=== PATIENT | male | born 2000 | race Caucasian/White ===

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

== ENCOUNTER 2023-06-10 14:36 | Emergency (ER) | payer SELFPAY ==
[2023-06-10 14:38] VITALS: BP 145/89; PULSE 66; RESP 18; TEMP 36.7; O2SAT 100
--- NOTE | 2023-06-10 14:43 | ECG_ITS ---
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 Measurements Intervals [place] Rate: 64 P: 73 TN: 139 QRS: 93 QRSD: 109 T: 64 QT: 387 QTc: 401 Interpretive Statements SINUS RHYTHM WITH SINUS ARRHYTHMIA BORDERLINE RIGHT AXIS DEVIATION [QRS AXIS > 90] INCOMPLETE RIGHT BUNDLE BRANCH BLOCK [90+ ms QRS DURATION, TERMINAL R IN V1/V2, 40+ ms S IN I/aVL/V4/V5/V6] MODERATE ST DEPRESSION [0.05+ mV ST DEPRESSION] No previous ECG available for comparison Electronically Signed On 06-10-2023 16:50:15 POWERHOUSE ELECTRICIAN APPRENTICE by Carlos Cardona M.D. [id number]
--- NOTE | 2023-06-10 14:48 | XRR_ITS ---
PROCEDURE INFORMATION: Exam: XR Chest Exam date and time: 06/10/2023 3:39 PM Age: 22 years old Clinical indication: Pain; Angina pectoris; Additional info: Chest pain TECHNIQUE: Imaging protocol: Radiologic exam of the chest. Views: 1 view. COMPARISON: CT cervical spin wo con* [id number] 06/23/2019 5:50 PM FINDINGS: Lungs: Unremarkable. No consolidation. Pleural spaces: Unremarkable. No pleural effusion. No pneumothorax. Heart/Mediastinum: Unremarkable. No cardiomegaly. Bones/joints: Unremarkable. XR/XR chest 1V portable [id number] IMPRESSION: No acute findings.
== END 2023-06-10 15:43 | disposition left against medical advice (07) ==
PROVIDERS: Emergency Provider Family Medicine
DX: Z53.21 Procedure and treatment not carried out due to patient leaving prior to being seen by health care provider (principal)
CPT/HCPCS: 71045; 93005

== ENCOUNTER 2025-03-04 09:36 | Outpatient (RCR) | payer OTHER, SELFPAY | END 2025-03-05 23:59 | disposition home or self-care (01) | LOC: SPT 09:36 | PROVIDERS: Visit Provider Urology | DX: Z98.890 Other specified postprocedural states (principal) | CPT/HCPCS: 97110; 97161 ==

== ENCOUNTER 2025-03-06 05:00 | Outpatient (RCR) | payer OTHER, SELFPAY | END 2025-04-05 23:59 | disposition home or self-care (01) | LOC: SPT 05:00 | PROVIDERS: PCP Electrodiagnostic Medicine; Visit Provider Urology | DX: Z98.890 Other specified postprocedural states (principal) | CPT/HCPCS: 97110; 97140; 97530 ==

== ENCOUNTER 2025-03-18 12:39 | Emergency (ER) | payer OTHER, SELFPAY ==
--- OUTSIDE RECORDS SUMMARY | 2025-03-18 12:47 | XMS_ITS | Clinical Summary ---
Author Organization [facility] Address [address] [place] [address] Care Team Providers Care Salvage Winder And Inspector Name Role Phone Unavailable Primary Care Provider Unavailabl e Allergies No known active allergies Medications ibuprofen (MOTRIN) 600 mg tablet ibuprofen 600 mg oral tablet Start Date: 05/20/20 Status: Ordered 0 Active ondansetron (ZOFRAN ODT) 4 mg Tablet, Rapid DissolveIndicati ons:Abdominal pain, unspecified abdominal location Take 1 Tablet (4 mg) by mouth every 8 hours as needed for Nausea/Emesis. Dissolve tablet on top of tongue, then swallow with saliva. 30 Tablet 2 Active Active Problems No known active problems Social History Tobacco Use Types Packs/Day Years Used Date Smoking Tobacco: Never Smokeless Tobacco: Never Tobacco Cessation:Counseling Given: No Sex and Gender Information Value Date Recorded Sex Assigned at Not on file Legal Sex Male 5:26 PM CDT Gender Identity Not on file Sexual Orientation Not on file Last Filed Vital Signs Vital Sign Reading Time Taken Comments Blood Pressure 130/88 05/24/2022 8:48 AM DINKEY ENGINE MECHANIC Pulse 115 05/24/2022 8:48 AM DINKEY ENGINE MECHANIC Temperature 36.9 C (98.5 F) 05/24/2022 8:48 AM DINKEY ENGINE MECHANIC Respiratory Rate 18 05/24/2022 8:48 AM DINKEY ENGINE MECHANIC Oxygen Saturation 96% 05/24/2022 8:48 AM DINKEY ENGINE MECHANIC Inhaled Oxygen Concentration - - Weight 72.1 kg (159 lb) 05/24/2022 8:48 AM DINKEY ENGINE MECHANIC Height 175.3 cm (5' 9 ) 05/24/2022 8:48 AM DINKEY ENGINE MECHANIC Body Mass Index 23.48 05/24/2022 8:48 AM DINKEY ENGINE MECHANIC Plan of Treatment Health Maintenance Due Date Last Done Comments HPV VACCINES (1 - Male 3-dose series) 2016 HEPATITIS B VACCINES (2 of 3 - Hep B Twinrix 3-dose series) 06/16/2020 05/19/2020 INFLUENZA VACCINE (#1) 2025 04/09/2020 DTAP/TDAP/TD VACCINES (2 - Td or Tdap) 04/09/2030 Insurance
[2025-03-18 12:50] VITALS: BP 136/85; PULSE 92; RESP 17; TEMP 36.6; O2SAT 100; BMI 20.7
--- NOTE | 2025-03-18 13:09 | ED_ITS ---
HPI - Extremity Problem General: Chief complaint: Extremity Problem,Nontraumatic Stated complaint: possible clot in R leg, redness Time Seen by Provider: 03/18/25 13:09 Source: patient Mode of arrival: ambulatory Limitations: no limitations History of Present Illness: Patient is a nice 24-year-old male who presents to ED today at the request of his physical therapist due to some complaints of right calf pain following a surgery 2 weeks ago. He had surgery to the right hip to repair a torn labrum. He states he was doing physical therapy today when he mentioned to his therapist that he had been having a burning and lightening sensation to the calf. They reportedly aborted therapy and recommended he come to the emergency department to rule out a DVT. He does have follow-up with his surgery team this week. He has not noticed any significant calf swelling. He states yesterday he did notice that his legs turned red and purple for a few minutes after standing up quickly from lying down. He states this has since subsided and he has not had any further episodes. He currently reports no changes to color/temperature of his lower extremities. MD Complaint: extremity pain (R calf pain) Onset (ago): day(s) Pain Consistency: intermittent Location: right and lower extremity Quality: burning Radiation: none Relieving factors: nothing Exacerbating factors: nothing Associated symptoms: Reports no associated symptoms; Deny chest pain or fever(s) Context: recent surgery/procedure Related Data Home Medications ?Medication ?Instructions ?Recorded ?Confirmed Tylenol 1 - 2 tab PO PRN 01/02/20 Allergies Allergy/AdvReac Type Severity Reaction Status Date / Time No Known Allergies Allergy Verified 08/07/24 07:24 Review of Systems Const: Denies: fever(s) Card: Denies: chest pain Resp: Denies: dyspnea Musc: Reports: extremity pain; Denies: neck pain, back pain, extremity swelling, joint pain, joint swelling, joint redness, joint warmth, joint stiffness, limited range of motion, muscle cramps or muscle weakness Skin/Breast: Denies: erythema Neuro: Denies: numbness in extremities, weakness in extremities, sensory changes or difficulty walking PFS ED PFSH: Medical History Bilateral hip pain Social History (Reviewed 03/18/25 @ 13:29 by DALE Khan Smoking and tobacco/nicotine status: current some day tobacco/nicotine user Alcohol intake: never Substance/Drug Use: never Physical Exam Const: COMMON NORMALS: no acute distress, average body habitus, patient oriented x3, no limitations, healthy appearing, alert and well nourished GENERAL APPEARANCE: cooperative Resp: COMMON NORMALS: normal respiratory effort Extremity: COMMON NORMALS: capillary refill normal, no joint enlargement, no clubbing, cyanosis or edema and no pedal edema GENERAL: Yes normal exam except as noted RIGHT LOWER EXTREMITY: Yes lower leg (mild R calf pain; no edema or erythema or warmth present) Right lower leg: Yes inspection (normal gross inspection) and Yes neurovascular exam (normal) OTHER: bilateral LEs with intact sensation and pulses with normal cap refills Neuro: COMMON NORMALS: patient oriented x3, moves all extremities, no focal motor deficits, no sensory deficits noted and gait normal SENSORIUM/ORIENTATION: Yes alert Skin: COMMON NORMALS: no rashes or lesions noted GENERAL SKIN EXAM: no rashes or lesions noted Course Vital Signs: Vital signs: Vital Signs Temperature 97.9 F 03/18/25 12:50 Pulse Rate 92 03/18/25 12:50 Respiratory Rate 17 03/18/25 12:50 Blood Pressure 127/95 03/18/25 13:26 Pulse Oximetry 98 03/18/25 13:26 Oxygen Delivery Me thod Room Air 03/18/25 13:26 MDM - Extremity (Nontraumatic) Medical Decision Making Patient is a 24-year-old male here for some right sided calf pain. He did undergo surgery to the right hip/labrum approximately 2 weeks ago. He was reportedly at physical therapy when they wanted him to come to the emergency department for rule out DVT. [employer] steve, completed his venous scan and had reported no DVT. He did also evaluate for arterial flow and this was normal. At this time patient is cleared for discharge from the emergency dep artment. He can continue to follow-up with his physical therapy and surgery team as scheduled. Differential Diagnosis Likely superficial thrombophlebitis, lower extremity edema and deep vein thrombosis of lower extremity Medical Records I reviewed the patient's medical records. XR interpretation done by ED provider, pending radiology final review (per US steve Coffey-no DVT, visualized good arterial flow as well) Discharge Plan Discharge Patient Disposition: Home Clinical Impression: Right calf pain Condition: Stable Prescriptions: No Action Tylenol 1 - 2 tab PO PRN Discharge Orders: Discharge ED (Routine); Ordered 03/18/25 Ordered By: Teena Galan Referrals: Rupesh Green DO [Primary Care Provider, Family Practice] Patient Instructions: Patient Portal & Am[facility] Instructions Activity Restrictions/Additional Instructions: As we discussed, ultrasound did not visualize any DVT (blood clot). You may continue physical therapy as directed. You may follow-up with your surgical team as scheduled. Print Language: Colombian Coding Level of Care Code ED Photolithographic Stripper for Sari Gaona
--- NOTE | 2025-03-18 13:15 | USCV_ITS ---
Juan Luis Miner Age: 24 Gender: M : 2000 Exam Date: 03/18/2025 13:24 Ordering Phys: Teena Galan Technologist: LIZ [place] [facility] [place]: Calf Pain. HISTORY: Calf Pain PROCEDURES: Venous duplex imaging was performed in bilateral lower extremities. The following venous structures were evaluated: common femoral vein, profunda vein, proximal portion of the greater saphenous vein, superficial femoral vein, and the popliteal vein. In addition, the posterior tibial and peroneal trunk were evaluated. Serial compression, augmentation maneuvers, and spectral Doppler flow evaluation were performed. FINDINGS: Normal 2-D Doppler and augmentation and compressibility throughout the lower extremity venous structures. Additional imaging through the proximal calf veins also reveals no thrombus. Limited evaluation of the greater saphenous vein is patent with no thrombus. CONCLUSIONS No DVT right lower extremity. Dr. Yadi Lisa DO (Electronically Signed) Final Date: 18 March 2025 14:24 S
[2025-03-18 13:26] VITALS: BP 127/95; O2SAT 98
[2025-03-18 13:45] VITALS: BP 140/95; PULSE 80; O2SAT 95
== END 2025-03-18 13:48 | disposition home or self-care (01) ==
PROVIDERS: Emergency Provider Physician Assistant; PCP Electrodiagnostic Medicine
DX: M79.661 Pain in right lower leg (principal)
CPT/HCPCS: 93971; 99284

== ENCOUNTER 2025-04-06 05:00 | Outpatient (RCR) | payer OTHER, SELFPAY | END 2025-05-05 23:59 | disposition home or self-care (01) | LOC: SPT 05:00 | PROVIDERS: Visit Provider Orthopaedic Surgery Sports Medicine | DX: Z98.890 Other specified postprocedural states (principal) | CPT/HCPCS: 97110 ==

== ENCOUNTER 2025-05-06 05:00 | Outpatient (RCR) | payer OTHER, SELFPAY | END 2025-06-05 23:59 | disposition home or self-care (01) | LOC: SPT 05:00 | PROVIDERS: Visit Provider Orthopaedic Surgery Sports Medicine | DX: Z98.890 Other specified postprocedural states (principal); M25.552 Pain in left hip | CPT/HCPCS: 97110; 97140 ==

== ENCOUNTER 2025-05-06 05:00 | Outpatient (RCR) | payer OTHER, SELFPAY | END 2025-05-22 10:12 | disposition home or self-care (01) | LOC: SPT 05:00 | PROVIDERS: Visit Provider Orthopaedic Surgery Sports Medicine | DX: Z98.890 Other specified postprocedural states (principal) | CPT/HCPCS: 97110 ==

== ENCOUNTER 2025-05-26 13:05 | Emergency (ER) | payer OTHER, SELFPAY ==
--- OUTSIDE RECORDS SUMMARY | 2014-05-28 03:41 | XMS_ITS | Continuity of Care Document ---
Author Organization [facility] Address [address] [place] [address] [place] [address] Phone Care Team Providers Care Welder Manufacture Name Role Phone Edgar Hawk MD Unavailable Unavailable Procedures Procedure Date OFFICE/OUTPATIENT VISIT, EST Pelvis X-Ray 3 Views (AP, Inlet/Outlet) OFFICE/OUTPATIENT VISIT, [facility] Ankle X-Ray 3 Views (AP, LAT, OBL) Foot X-Ray 3 Views (AP, LAT, OBL) Advance Directives Directive Yes / No Effective Date File Name No Information Encounters Encounter Description Practice Location Reason(s) For Visit Diagnoses Date Provider Providers Copied on Encounter -[facility], [address] [place] [address], [id number], tel:[phone] [phone] [facility] No Information 4 Kenn Hernández. [address] [place] [address], [id number], [place]. tel:[phone] OFFICE/OUTPAT IENT VISIT, EST [facility], [address] [place] [address], [id number], tel:[phone] [facility] No Information 4 Moorthy Jean. [address] [place] [address], [id number], [place]. tel:[phone] Referring Provider: Suzanne Atkinson MD, [address], [place], [address]. tel:[phone] OFFICE/OUTPAT IENT VISIT, [facility], [address] [place] [address], [id number], tel:[phone] [facility] No Information Feb-2 2 Moorthy Jean. [address] [place] [address], [id number], [place]. tel:[phone] Referring Provider: Self Referred, [address] [address], [place], [address] . tel:[phone] Family History Family Member Type Diagnosis Age At Onset Problem (finding) Family history of Cance r of Breast Payers Payer name Insurance type Covered green party ID Authorkalia barroso(s) [facility] [id number] Social History Type Description Quantity Date Captured Comments Sex Male Smoking Status No Information Chief Complaint And Reason For Visit No Information Reason For Referral Reason For Referral No Information History Of Present Illness Encounter Date Complaint History Of Prese nt Illness No Information Functional Status Date Functional Assessmen t No Information Instructions Date Instruction Additional Infor mation No Information Assessments Type Assessment Date No Information Patient Care Teams Name Effective Dates (start - stop) Status Members No Information
--- OUTSIDE RECORDS SUMMARY | 2025-05-26 13:11 | XMS_ITS | Clinical Summary ---
Author Organization [facility] Address [address] [place] [address] Care Team Providers Care Licensed Mortgage Loan Officer Name Role Phone Unavailable Primary Care Provider [...] Comments Blood Pressure 130/88 05/24/2022 8:48 AM FAST FOOD SHIFT LEAD Pulse 115 05/24/2022 8:48 AM FAST FOOD SHIFT LEAD Temperature 36.9 C (98.5 F) 05/24/2022 8:48 AM FAST FOOD SHIFT LEAD Respiratory Rate 18 05/24/2022 8:48 AM FAST FOOD SHIFT LEAD Oxygen Saturation 96% 05/24/2022 8:48 AM FAST FOOD SHIFT LEAD Inhaled Oxygen Concentration - - Weight 72.1 kg (159 lb) 05/24/2022 8:48 AM FAST FOOD SHIFT LEAD Height 175.3 cm (5' 9 ) 05/24/2022 8:48 AM FAST FOOD SHIFT LEAD Body Mass Index 23.48 05/24/2022 8:48 AM FAST FOOD SHIFT LEAD Plan of Treatment Health Maintenance Due Date Last Done Comments HPV VACCINES (1 - Male 3-dose series) 2016 HEPATITIS B VACCINES (2 of 3 - Hep B Twinrix 3-dose series) 06/16/2020 05/19/2020 INFLUENZA VACCINE (#1) 2025 04/09/2020 DTAP/TDAP/TD VACCINES (2 - Td or Tdap) 04/09/2030 Insurance
--- OUTSIDE RECORDS SUMMARY | 2025-05-26 13:11 | XMS_ITS | Data Portability ---
Author Organization [facility] Tevin Velasquez [facility], Viraj, [facility] Address [address] [facility] [address] [place] [address] Assessment Encounter Date Assessment Date Assessment LastModified by Organization Details LastModified Time 11/28/2024 11/28/2024 Document scribed by Elijah Sosa Product Management Manager. I was present during interview and exam. I have reviewed and agree with above documentation. Dr. Rupesh Green. I Left a message at [facility] to discuss case and imaging with them. [email or web address] Not available 12/03/2024 07:53:20 01/31/2025 01/31/2025 Document scribed by Brionna Hernandez. I was present during interview and exam. I have reviewed and agree with above documentation. Dr. Rupesh Green. Counseled imaging of L ankle, L knee, R hand, and lower back today, RTC for f/u to discuss results. I do not see anything in history or exam today that would justify disability especially related etiology. But we will f/u on xrays and have him continue with eval with specialists. continue with prn nsaids, tylenol. ambulation/exe rcise as tolerated [email or web address] Not available 02/06/2025 12:37:38 02/06/2025 02/06/2025 Document scribed by Brionna Hernandez Scribe. I was present during interview and exam. I have reviewed and agree with above documentation. Dr. Rupesh Green. Reviewed and discussed recent XR's, negative other than mild scoliosis. Explained nothing on this imaging or on exam suggests anything for disability. continue f/u with hip specialist in [place]. [email or web address] Not available 02/12/2025 02:11:38 Plan of Treatment Reminders Order Date Submit Date Provider Last Modified By Organization Details Last Modified Time Details Appointments None recorded. Lab None recorded. Referral None recorded. Procedures None recorded. Surgeries None recorded. Imaging XR, lumbosacral spine, 2 or 3 view [address] [place] [address] ([facility]), [address] [place], [address], 5 12:02:22 XR, knee, 3 view [address] [place] [address] ([facility]), [address] [place] [address], [phone], 5 12:02:22 XR, ankle, 3 or more view [address] [place] [address] ([facility]), [address] [place] [address], [phone], 5 12:02:22 XR, hand, 3 or more view [address] [place] [address] ([facility]), [address] [place], [address], 5 12:02:22 XR, cervical spine, 2 or 3 view [address] [place] [address], [address] [place] [address], [id number], 5 12:15:52 XR, hip + pelvis, bilateral, 3 or 4 view [address] [place] [address]), [address] [place], [address], 5 12:15:52 Medication Orders None recorded. Patient TargetsNo targets recorded. Patient InstructionsNo instructions recorded. Reason for Referral None Reported. Results Created Date Observation Date Name Description Value Unit Range Abnormal Flag Note LastModifiedBy Organization Detail LastModifiedTime 12/01/1911/28/2024 XR, hip + pelvi s, bilat eral, 3 or 4 view No observ ation record ed. [address] [place], [address], 12/04/2024 17:48:07 12/01/19 25 11/28/2024 XR, cervi eufemia spine , 2 or 3 view No observ ation record ed. [address] [place], [address], 12/04/2024 17:48:08 02/01/20 XR, ankle , 3 or more view No observ ation record ed. [facility] ([facility]) [address] [place], [address], 01/31/2025 09:38:28 02/02/20 25 01/31/2025 XR, lumbo sacra l spine , 2 or 3 view No observ ation record ed. [facility] [address] [place], [address], 02/06/2025 12:39:11 02/02/20 25 01/31/2025 XR, knee, 3 view No observ ation record ed. [facility] [address] [place], [address], 02/06/2025 12:38:49 02/02/20 25 01/31/2025 XR, ankle No observ ation record ed. [address] [place], [address], 02/11/2025 11:32:08 02/02/20 25 01/31/2025 XR, hand, 3 or more view No observ ation record ed. [facility] [address] [place], [address], 02/06/2025 12:38:27 Result Notes None recorded. Problems Name Problem SNOMED Code Status Onset Date Resolution Date Notes Provider Name and Address Organization Details Recorded Time Migraine 12284896 Active Skye coffman [facility] 5 08:21:36 Gastric ulcer 802182378 [facility] 08:56:35 Neck pain 51137474 [facility] 08:56:37 Pain of hip region 98865961 Active Elijah coffman [facility], [facility] 5 08:56:38 Problem Notes None recorded. Medical Equipment None Reported. Allergies No known drug allergies Medications Not known to be on any medication Vitals Date Recorded Body weight Body mass index (BMI) Body height Oxygen saturation Heart rate Respiratory rate Systolic And Diastolic Provider Name and Address Organization Details Last Updated DateTime 5 91932.5 5 g 20.5 kg/m2 175.26 cm 99 % 70 /min 18 /min 120/88 mm[Hg] Skye Lee [facility] 5 08:28:07 Date Recorded Body height Body mass index (BMI) Body weight Oxygen saturation Heart rate Respiratory rate Systolic And Diastolic Provider Name and Address Organization Details Last Updated DateTime 5 175.26 cm 20.7 kg/m2 92963.3 3 g 99 % 95 /min 18 /min 130/80 mm[Hg] Skye Lee [facility] 5 09:09:26 Date Recorded Body height Body mass index (BMI) Body weight Oxygen saturation Heart rate Respiratory rate Systolic And Diastolic Provider Name and Address Organization Details Last Updated DateTime 175.26 cm 20.6 kg/m2 56551.7 4 g 99 % 103 /min 18 /min 110/66 mm[Hg] [facility] 12:29:35 Social History None recorded. Functional Status None recorded. Mental Status None recorded. Family History Relationship Description Onset Age of this Age Resolved Age Notes LastModified by Organization Details LastModified Time Mother Essential hypertension [email or web address] Not available 08:24:42 Father Essential hypertension [email or web address] Not available 08:24:42 Medical History No medical history recorded. Immunizations Vaccine Type Date Status Note Provider Nam e and Address Organization Details Recorded Time Hep B, adolescent or pediatric 2 completed Not Available [facility] 02/06/2025 12:18:45 Hep B, adolescent or pediatric 2 completed Not Available [facility] 02/06/2025 12:18:45 DTaP 2 completed Not Available [facility] 02/06/2025 12:18:45 Hib (HbOC) 2 completed Not Available [facility] 02/06/2025 12:18:45 IPV 2 completed Not Available [facility] 02/06/2025 12:18:45 Hep B, adolescent or pediatric 3 completed Not Available [facility] 02/06/2025 12:18:45 Hib (PRP-T) 3 completed Not Available [facility] 02/06/2025 12:18:45 IPV 3 completed Not Available [facility] 02/06/2025 12:18:45 pneumococcal conjugate PCV 7 3 completed Not Available [facility] 02/06/2025 12:18:45 DTaP 3 completed Not Available [facility] 02/06/2025 12:18:45 DTaP 3 completed Not Available [facility] 02/06/2025 12:18:45 Hib (PRP-T) 3 completed Not Available [facility] 02/06/2025 12:18:45 IPV 3 completed Not Available [facility] 02/06/2025 12:18:45 MMR 3 completed Not Available [facility] 02/06/2025 12:18:45 pneumococcal conjugate PCV 7 3 completed Not Available [facility] 02/06/2025 12:18:45 Hib (PRP-T) 4 completed Not Available [facility] 02/06/2025 12:18:45 DTaP 4 completed Not Available [facility] 02/06/2025 12:18:45 varicella 4 completed Not Available [facility] 02/06/2025 12:18:45 MMR 6 completed Not Available [facility] 02/06/2025 12:18:45 IPV 6 completed Not Available [facility] 02/06/2025 12:18:45 DTaP 6 completed Not Available [facility] 02/06/2025 12:18:45 varicella 7 completed Not Available [facility] 02/06/2025 12:18:45 Tdap 4 completed Not Available [facility] 02/06/2025 12:18:45 meningococcal MCV4P 5 completed Not Available [facility] 02/06/2025 12:18:45 HPV9 5 completed Not Available [facility] 02/06/2025 12:18:45 COVID-19, mRNA, LNP-S, PF, 30 mcg/0.3 mL dose 1 completed Not Available [facility] 02/06/2025 12:18:45 Past Encounters Encounter ID Performer Location Encounter Start Date Encounter Closed Date Diagnosis/Indication Diagnosis SNOMED-CT Code Diagnosis ICD10 Code Diagnosis IMO Codes Diagnosis Note [id number] Rupesh Green DO [facility] ([facility]) [address] [place] [phone] 11/28/2024 08:06:39 2024 12:15:52 Pain of hip region 81153578 M25.551 M25.552 G89.29 [id number] 11/28/24: XR hip/pelvis b/l today, pt to sign for records from [facility], consider MRI. take tylenol prn. ambulate as tolerated. Gastric ulcer 176254796 K25.9 [id number] H/o., stable. no recent symptoms. will try to avoid nsaids. Neck pain 49856231 M54.2 47599 11/28/24: XR C spine today. counseled on home exercises. recommend massage. [id number] Rupesh Green DO [facility] ([facility]) [address] [place] [phone] 01/31/2025 09:00:56 02/04/2025 12:02:22 Chronic ankle pain 1701150820 9109 M25.572 G89.29 51588835 Pain of le ft knee joint 4524797807 12458 M25.562 521220 Pain of right hand 88129 33869 23970 M79.641 142104 Chronic low back pain 27 2124279 M54.50 G89.29 36576886 Anxiety 56495734 F41.9 78049 Advised pt see behavioral health regarding his anxiety. Migraine 27518314 G43.90 9 [id number] Advised pt continue f/u with Headache Specialist in [place]. 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 [id number] Rupesh Green DO [facility] ([facility]) [address] [place] [id number] 02/06/2025 12:18:27 02/12/2025 11:14:16 Pain of hip region 52063219 M25.551 M25.552 G89.29 [id number] 02/06/25: Reviewed and discussed recent XR's, negative.: XR hip/pelvis b/l today, pt to sign for records from [facility], consider MRI. take tylenol prn. ambulate as tolerated. Health Concerns Section Related Observation LastModified by Organization Detai ls LastModified Time None Recorded Concern Status LastModified by Organization Details LastModified Time None Recorded Advance Directives Directive None Recorded Payers Insurance Date Sequence Insurance Name Policy Number Policy Jarquin Covered Member ID Jarquin Member ID Guarantor Name 02/12/2025 1 [place] [id number] 1 Juan Luis Miner [id number] Juan Luis Miner Notes Date Note Type Note Provider Name and Address Organization Details Recorded Time 11/28/2024 text/html Annual WellnessReported by PatientSocial/Behavior al HistoryFor fracture risk, patient reportshistory of fracturesbut reportsno recent explained fracture,no sudden unexplained fractures, andno previous musculoskeletal injuries. For diet and nutrition, patient reportshealthy diet. For physical activity, patient reportsrecent increase in physical activityandgood physical condition. For additional lifestyle factors, patient reportsno tobacco useandno alcohol intake.Mental Status:For depression risk, patient reportsnever feels sad, empty, or tearful,no loss of interest in activities,no significant changes in weight,no sleep disturbances or insomnia,no agitation,no loss of energy,no feelings of worthlessness or guilt,no thoughts of suicide,no history of depression, andno history of mood disorders.Functional AbilityFor hearing, patient reportsno loss of hearing(tinnitus). For vision, patient reportsno vision problems.ROS as noted in the HPI Pt presents to establish care. He reports he is trying to update MRI of his hips so he can have surgery.H/o being in [employer], a lot of walking and tracking uneven land, no specific prior injury, no issues prior to serving other than right hip twisting out of socket one time during sports in high school. He participated in track, football, and wrestling in high school.He had MRI Hip Arthrogram in 2021 at [facility] in [place]. He saw Orthopedics in [place] ( last seen in 2022), dx with bilateral Pubic symphysis diastasis, abductor tendon partial tear strain. No prior hip XR or CT. He tried 4-5 months of PT ( finished winter 2021), pain worsened. He was put on crutches, taken out of school for one month to rest, without improvement.He was recommended steroid injections or surgery. Pt is ok with surgery if it improves the chronic pain. His Orthopedic doctor has recently sent a referral to Dr. Johns in [facility], hasn't seen yet, wants imaging prior to going there. He reports he walks a lot for work, at the local [employer], [employer]. He reports pain increased when he is working, finds he has difficulty walking d/t the pain, especially this week. Taking Tylenol PRN, unable to take Ibuprofen d/t h/o gastric ulcer. No Fhx Arthritis.Fhx: HTN, both parents. Shx: right hand FB removed effecting tendons. Also c/o neck pain for 3-4 months, has been seeing Rich Singletary, Chiropractor for adjustment. Yesterday he experienced tingling in the left face for 3-4 hours, this concerning to him. Rupesh Green, DO [address] [place], [address], [facility], [facility]aj 12/03/2024 07:54:23 01/31/2025 text/html ROS as noted in the HPI Pt presents for recheck 2 months hip pain. He has been seen in [place], imaging performed, referred to [facility], who he saw 3 days ago, was told he has hip impingement . Planned to return in 8 days for MRI, CT, followed by surgery. They will plan to do one hip, be in a brace and crutches for 6-8 weeks, then surgery on the other hip, approx 1 year recovery. He continues with back and hip pain, 5/10 today, worse with movement. He reports I knocked my hip out of place when in high school . He is wanting to discuss the pain and limited ROM of left ankle, left knee, right hand, back, and hips He is needing dx with any health conditions to present to [place] for disability. He is working in advance on being out of work for one year, has short and skilled nursing disability coverage through his employer, however it is only 60% of his income. He had several injuries while in the [email or web address], resulting in chronic pain. H/o right hand surgery, removal of FB, after wood went into his hand, involving tendons and ligaments . No PT was done. 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 He broke his left ankle twice while hiking. He rolled it, hit the dirt, followed by pain that continued through his hike. 2 days later he had imaging done, was told he had two fractures, ligament injury. He reports they told him they couldn't do surgery, he would have to deal with it. He was put in a brace for 1-2 months. He has chronic pain of this ankle all the time, worse with ambulation. He injured his left knee prepping for a hike, it was my IT band rubbing against my knee .He did do PT on the knee, without improvement.He has chronic left knee pain with intermittent flares, worse with working and walking long distances, hiking. Also with chronic lower back pain, worse with movement, bending. Pt is not exercising d/t hip pain. He was doing some PT in [place] for months, however it was making his pain worse. He also c/o migraines, reports he has seen Headache specialist in [place], kept a headache diary. Also c/o anxiety, this started after serving in the [employer]. Rupesh Green DO [address] [place] [address], [phone], [facility] 02/06/2025 12:37:42 02/06/2025 text/html ROS as noted in the HPI Pt presents for recheck 1 week He is wanting to discuss the results of his xraysHe rates his pain at 6/10 today We did multiple XR's 01/31/25 including right hand, left knee, left ankle, LS spine, all negative other than some mild levoscoliosis of the lumbar spine. Rupesh Green DO [address] [place] [address], [phone], [facility] Viraj Bird 02/12/2025 02:11:40
[2025-05-26 13:13] VITALS: BP 139/98; PULSE 75; RESP 16; TEMP 36.7; O2SAT 95; BMI 20.7
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
--- NOTE | 2025-05-26 13:37 | W.ED.WOUNDLC ---
HPI - Wound/Laceration General: Chief Complaint: Wound/Laceration Stated Complaint: left hip yellow drainage with fever Time Seen by Provider: 05/26/25 13:20 History of Present Illness: Patient is a 24-year-old gentleman that had second surgery of his left hip, anterior approach, labrum repair, femoral head shaving at orthopedics in [place], [place] Dr. loew, returns to the ED due to fever chills, drainage from his anterior laceration site. Context: Patient does not know if he had an injury or it was congenital, however he had issues with his hip, and went under repair of the above surgery on 05/22. He is nonweightbearing. Over the last 24 hours, he noted drainage to both his anterior surgery sites, however the medial 1 is more pronounced, with serosanguineous drainage in the proximal portion of the suture. Today, he felt fever, chills, however no notable temperature was noted in triage. He does not have any nausea, vomiting, or increased pain. Associated symptoms: Denies fever(s) Related Data Home Medications ?Medication ?Instructions ?Recorded ?Confirmed Tylenol 1 - 2 tab PO PRN 01/02/20 08/07/24 Previous Rx's ?Medication ?Instructions ?Recorded ketorolac 10 mg tablet 10 mg PO Q8H PRN pain 5 days #14 05/26/25 tabs sulfamethoxazole 800 1 tab PO BID 10 days #20 tabs 05/26/25 mg-trimethoprim 160 mg tablet (Bactrim DS) Allergies Allergy/AdvReac Type Severity Reaction Status Date / Time No Known Allergies Allergy Verified 08/07/24 07:24 Review of Systems Const: Denies: fever(s) Card: Denies: chest pain Resp: Denies: dyspnea Musc: Reports: extremity pain; Denies: neck pain, back pain, extremity swelling, joint pain, joint swelling, joint redness, joint warmth, joint stiffness, limited range of motion, muscle cramps or muscle weakness Skin/Breast: Denies: erythema Neuro: Denies: numbness in extremities, weakness in extremities, sensory changes or difficulty walking ON LICENSE OF [facility] ED PFSH: Medical History (Updated 05/26/25 @ 15:24 by RODRIGO Pineda) Bilateral hip pain Social History Smoking and tobacco/nicotine status: current some day tobacco/nicotine user Alcohol intake: never Substance/Drug Use: never Physical Exam Const: COMMON NORMALS: no acute distress, average body habitus, patient oriented x3, no limitations, healthy appearing, alert and well nourished GENERAL APPEARANCE: cooperative HENMT: COMMON NORMALS: normocephalic and atraumatic HEAD & SCALP: normocephalic and atraumatic Lymph: LYMPHATIC: no lymphadenopathy noted Resp: COMMON NORMALS: normal respiratory effort GI: COMMON NORMALS: Normal to inspection, nondistended, normoactive bowel sounds present, Soft to palpation, non-tender and No hepatosplenomegaly present PALPATION: Yes Soft to palpation and Yes No hepatosplenomegaly present Extremity: COMMON NORMALS: capillary refill normal, no joint enlargement, no clubbing, cyanosis or edema and no pedal edema GENERAL: Yes normal exam except as noted RIGHT LOWER EXTREMITY: Yes lower leg (mild R calf pain; no edema or erythema or warmth present) Right lower leg: Yes inspection (normal gross inspection) and Yes neurovascular exam (normal) OTHER: Clear serous drainage anterior medial proximal suture Neuro: COMMON NORMALS: patient oriented x3, moves all extremities, no focal motor deficits, no sensory deficits noted and gait normal SENSORIUM/ORIENTATION: Yes alert Skin: COMMON NORMALS: no rashes or lesions noted GENERAL SKIN EXAM: no rashes or lesions noted Course Vital Signs: Vital signs: Vital Signs Temperature 98.1 F 05/26/25 13:13 Pulse Rate 97 05/26/25 16:21 Respiratory Rate 14 05/26/25 14:32 Blood Pressure 139/85 05/26/25 16:21 Pulse Oximetry 98 05/26/25 16:21 Oxygen Delivery Me thod Room Air 05/26/25 13:13 MDM - Wound/Laceration Medical Decision Making Patient is a 24-year-old gentleman that just underwent 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 This appears to be seroma in nature given his basically benign postsurgical CT of his hip. I have asked the patient to coordinate with his surgeon. I have prophylactically placed him on Bactrim for MRSA coverage. He did receive 1 g of vancomycin here. Medical Records I reviewed the patient's medical records. Lab Data I reviewed the patient's lab results. 05/26/25 13:43 05/26/25 13:[address] 05/26/25 13:33 IMPRESSION: 1. Question of intramuscular and fascial plane contrast extravasation (limited evaluation given no noncontrast comparison and single phase acquisition). Findings could be union representative of intramuscular hemorrhage, likely postoperative. Correlate for sanguinous exudate or developing hematoma over the lateral thigh. Correlate for signs/symptoms of overlying infection given mild soft tissue thickening/stranding. 2. Findings consistent with acute postoperative state, within normal limits. 3. No drainable fluid collection/abscess (including no substantial intramuscular hematoma at this time). 4. No acute osseous abnormality. 5. Small joint effusion. ADDENDUM: 05/26/25 [id number] The findings were verbally communicated via telephone conference with TAMIKA SHUKLA at 3:08 PM JOINER APPRENTICE on 05/26/2025. The findings were acknowledged and understood. Laboratory Results WBC 12.00 10^3/uL (3.29-11.43) H 05/26/25 13:43 RBC 4.91 10^6/uL (3.85-5.65) 05/26/25 13:43 Hgb 14.60 g/dL (11.27-16.99) 05/26/25 13:43 Hct 42.2 % (37-53) 05/26/25 13:43 MCV 85.9 fl (82-101) 05/26/25 13:43 MCH 29.7 pg (27-33) 05/26/25 13:43 MCHC 34.6 g/dL (30-55) 05/26/25 13:43 RDW 11.9 % (12.1-15.1) L 05/26/25 13:43 Plt Count 231 10^3/cmm (157-399) 05/26/25 13:43 MPV 9.6 fL (7.4-10.4) 05/26/25 13:43 Neut % (Auto) 82.3 % 05/26/25 13:43 Lymph % (Auto) 10.8 % 05/26/25 13:43 Millard % (Auto) 5.3 % 05/26/25 13:43 Eos % (Auto) 0.9 % 05/26/25 13:43 Baso % (Auto) 0.4 % 05/26/25 13:43 Neut # (Auto) 9.86 10^3/uL (1.8-7.7) H 05/26/25 13:43 Lymph # (Auto) 1.3 10^3/uL (0.8-4.8) 05/26/25 13:43 Millard # (Auto) 0.6 10^3/uL (0.2-0.9) 05/26/25 13:43 Eos # (Auto) 0.1 10^3/uL (0.0-0.8) 05/26/25 13:43 Baso # (Auto) 0.1 10^3/uL (0.0-0.1) 05/26/25 13:43 Nucleated RBC % (auto) 0 % 05/26/25 13:43 Nucleated RBCs # 0.0 /100WBC 05/26/25 13:43 Sodium 137 mmol/L (136-145) 05/26/25 13:43 Potassium 4.1 mmol/L (3.5-5.1) 05/26/25 13:43 Chloride 100 mmol/L (98-107) 05/26/25 13:43 Carbon Dioxide 25 mmol/L (22-29) 05/26/25 13:43 Anion Gap 16.1 (5-19) 05/26/25 13:43 BUN 12 mg/dL (6-20) 05/26/25 13:43 Creatinine 0.7 mg/dL (0.7-1.2) 05/26/25 13:43 GFR Calculation 139.8 mL/min (90-130) H 05/26/25 13:43 Glucose 87 mg/dL (65-115) 05/26/25 13:43 Calculated Osmolality 283 mOsm/kg (285-295) L 05/26/25 13:43 Lactic Acid 1.0 mmol/L (0.5-2.2) 05/26/25 13:43 Calcium 9.4 mg/dL (8.5-10.5) 05/26/25 13:43 Total Bilirubin 0.8 mg/dL (0.15-1.2) 05/26/25 13:43 AST 34 U/L (0-40) 05/26/25 13:43 ALT 20 U/L (0-41) 05/26/25 13:43 Alkaline Phosphatase 48 U/L (40-130) 05/26/25 13:43 C-Reactive Protein 3.5 mg/L (0.0-4.9) 05/26/25 13:43 Total Protein 6.7 g/dL (6.6-8.7) 05/26/25 13:43 Albumin 4.4 g/dL (3.5-5.2) 05/26/25 13:43 Globulin 2.3 g/dL (1.3-4.6) 05/26/25 13:43 All radiology interpretation(s) finalized by discharge Discharge Plan Discharge Patient Disposition: Home Clinical Impression: Seroma after procedure Condition: Stable Prescriptions: New sulfamethoxazole-trimethoprim [Bactrim DS] 800-160 mg tablet 1 tab PO BID 10 Days Qty: 20 0RF ketorolac 10 mg tablet 10 mg PO Q8H PRN (Reason: pain) 5 Days Qty: 14 0RF No Action Tylenol 1 - 2 tab PO PRN Discharge Orders: Discharge ED (Routine); Ordered 05/26/25 Ordered By: Tamika Shukla Discharge Diet: Usual diet Discharge Activity: Resume usual activity and Use walker/crutches as instructed Patient Instructions: Seroma (DC), Patient Portal & Masood Instructions Activity Restrictions/Additional Instructions: - Keep area clean and dry -Toradol is at the pharmacy. Do not take with other anti-inflammatories such as naproxen or ibuprofen. - Contact your primary surgeons office tomorrow to update them - Bactrim was sent to the pharmacy. Take twice daily. As we discussed, make sure you increase your fluid intake. Take a probiotic or eat active culture yogurt in order to avoid infectious diarrhea. Wound care includes Billy Ensure as we discussed. - Return to ED with fever, chills, increasing drainage, fever greater than 100.4 ?F Thank you for choosing [facility] for your healthcare needs today. You have been screened and evaluated and felt safe for discharge. Health conditions do change or evolve sometimes and as such it is important that you follow up with your Primary Doctor to be re checked, 3-5 days is a general good time frame for follow up. You are always welcome to return to the ED for re assessment if your symptoms are worsening or you have new concerns Print Language: [place] Coding Level of Care Code ED Retail Planning Manager for Sari Gaona
[2025-05-26 13:51] LABS: Hematocrit 42.2 % (37-53); Hemoglobin 14.60 g/dL (11.27-16.99); Mean Corpuscular HGB Conc 34.6 g/dL (30-55); Mean Corpuscular Hemoglobin 29.7 pg (27-33); Mean Corpuscular Volume 85.9 fl (82-101); Nucleated Red Blood Cells % 0 %; Platelet Count 231 10^3/cmm (157-399); Red Blood Count 4.91 10^6/uL (3.85-5.65); White Blood Count 12.00 10^3/uL (3.29-11.43)
[2025-05-26] MEDS: iohexol 350 mg/mL 500 mL Btl (per mL) IV (13:51)
[2025-05-26 14:08] LABS: Alanine Aminotransferase 20 U/L (0-41); Albumin Level 4.4 g/dL (3.5-5.2); Alkaline Phosphatase 48 U/L (40-130); Anion Gap 16.1 (5-19); Aspartate Amino Transferase 34 U/L (0-40); Blood Urea Nitrogen 12 mg/dL (6-20); Calcium 9.4 mg/dL (8.5-10.5); Carbon Dioxide 25 mmol/L (22-29); Chloride 100 mmol/L (98-107); Globulin 2.3 g/dL (1.3-4.6); Glucose 87 mg/dL (65-115); Osmolality Calculated 283 mOsm/kg (285-295); Potassium 4.1 mmol/L (3.5-5.1); Sodium 137 mmol/L (136-145); Total Protein 6.7 g/dL (6.6-8.7)
[2025-05-26 14:09] LABS: Lactic Sepsis W/Reflex 1.0 mmol/L (0.5-2.2)
[2025-05-26 14:32] VITALS: BP 152/84; PULSE 90; RESP 14; O2SAT 98
[2025-05-26] MEDS: orphenadrine 30 mg/mL Inj 2 mL IVP (14:58)
[2025-05-26 16:21] VITALS: BP 139/85; PULSE 97; O2SAT 98
== END 2025-05-26 16:23 | disposition home or self-care (01) ==
PROVIDERS: Emergency Provider Physician Assistant
DX: L76.34 Postprocedural seroma of skin and subcutaneous tissue following other procedure (principal); Z72.0 Tobacco use; Z98.890 Other specified postprocedural states
CPT/HCPCS: 36415; 73701; 80053; 83605; 85025; 86140; 87040; 96365; 96375; 99285; J1885; J2360; J3373; J7050